=== PATIENT | female | born 2000 | race Caucasian/White ===

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

== ENCOUNTER 2018-02-23 21:31 | Emergency (ER) | payer BC, OTHER ==
[2018-02-23 23:47] VITALS: BP 127/70
== END 2018-02-24 00:25 | disposition left against medical advice (07) ==
LOC: ED 21:31
DX: S01.81XA Laceration without foreign body of other part of head, initial encounter (principal); X58.XXXA Exposure to other specified factors, initial encounter; Z53.21 Procedure and treatment not carried out due to patient leaving prior to being seen by health care provider

== ENCOUNTER 2019-10-11 11:39 | Inpatient (IN) | payer BC, OTHER ==
[2019-10-11] MEDS ORDERED: Lactated Ringers 1000 ML Bag* 1,000 ML IV ONE (12:40)
[2019-10-11] MEDS ORDERED: Dinoprostone* 10 MG VAG.SUPP VAGINAL ONE (12:40)
[2019-10-11] MEDS ORDERED: Buffered Lidocaine 1% SYRIN* 1 ML/SYRINGE INTRADERM ONE (12:40)
--- NOTE | 2019-10-11 12:52 | HP ---
General Information - Reason for Visit Cervical ripening and IOL for gestational hypertension - General Information Maternal Age: 19 Grav: 1 Para: 0 SAB: 0 IEA: 0 Estimated Due Date: 10/30/19 Determined By: LMP Gestational Age in Weeks/Days: 37 2/7 Maternal Blood Type and Rh: B Positive - Results this Serology/RPR Result: Non-Reactive Rubella Result: Immune HBsAg Result: Negative HIV Result: Negative Past Medical History Pertinent Past Medical History: See Records - mild asthma, hypercholesterolemia as a teen Pertinent Past Surgical History: None Pertinent Family History: See Records - HTN - Antepartal Records Antepartal Records: Reviewed, Complicated by: - gestational HTN Review of Systems Constitutional: Comfortable CV Complaint: No Respiratory: Shortness of Breath: No Gastrointestinal: No Nausea/Vomiting, Normal Bowel Movement Genitourinary: No Dysuria, No Bleeding, No Leaking Fluid Musculoskeletal: No Complaint, No Epigastric Pain Neurological: No Headache, No Visual Changes Movement: Normal Exam Allergies/Adverse Reactions: Allergies No Known Allergies Allergy (Verified 03/16/17 12:45) T-98.6, P-98, R-20, BP-149/98, O2-100% - Measurements Height: 5 ft 1 in Weight: 78.925 kg Weight in lbs: 174.192065 Body Mass Index (BMI): 32.8 Pre- Weight: 70.76 kg Weight Gained This : 18 lbs and 0 ozs - Exam Breast: Breast Exam Deferred CVA: No CVA Tenderness Extremities: No Edema Heart: Normal Rhythm/Heart Sounds HEENT: No Significant Findings Lungs: Clear Bilaterally Rectal: Rectal Exam Deferred Reflexes: DTR 2+ Thyroid: No Thyromegaly - Abdominal Exam Abdomen Exam: Non-Tender, Fundal Height Consistent with Dates - Ultrasound/Biophysical Profile Ultrasound Status: Not Done Targeted Exam Findings See L&D Outpatient Visit Provider Note for Findings: N/A Estimated Weight: 6# Cervical Exam: 1cm Effacement: 50% Station: -1 Presenting Part: Vertex Membrane Status: Intact Bleeding/Discharge: None EFM Findings - External Monitor Findings Baseline Heart Rate: 125 External Monitor Findings: Accelerations Present, No Pattern of Variable or Late Decelerations, Variability Moderate, Baseline Stable Contractions: Irregular, Mild, < 45 Seconds Assessment/Plan - Assessment 19 year old at 37 2/7 weeks gestation, here for cervical ripening and IOL for gestational HTN. GBS culture pending. - Obstetrical Risk Factors Obstetrical Risk Factors: GBS Unknown, Gestational Hypertension - Plan Plan: Cervical Ripening, Admit - Anticipate Vaginal Delivery Plan Comment: Recommend cervical ripening. Discussed options including Cervidil, misoprostol, cervical ripening balloon. Pt strongly prefers to avoid cervical ripening balloon. Will try Cervidil as she finds vaginal exams very uncomfortable. Will check labs to include CBC, CMP, uric acid, type and screen and urinalysis for protein. GBS culture pending, per micro should be resulted tomorrow. If active labor ensues prior to result will initiate prophylaxis. FM per protocol for Cervidil. - Date/Time of Admission Date of Admission: 10/11/19 Time of Admission: 12:42
[2019-10-11] MEDS ORDERED: Lactated Ringers 1000 ML Bag* 1,000 ML IV SCH (13:00)
[2019-10-11 13:11] LABS: Urine Appearance Cloudy; Urine Bilirubin Negative (Negative); Urine Blood Negative (Negative); Urine Color Yellow; Urine Glucose Negative (Negative); Urine Ketones Negative (Negative); Urine Nitrite Negative (Negative); Urine Protein Negative (Negative); Urine Specific Gravity 1.006 (1.010-1.030); Urine Urobilinogen Negative (Negative)
[2019-10-11 13:14] LABS: Urine Bacteria 3+ (Absent); Urine Red Blood Cell 1+(3-5/hpf) (Absent); Urine Squamous Epithelial Cell Present (Absent); Urine White Blood Cell 1+(6-10/hpf) (Absent)
[2019-10-11 13:21] LABS: Urine Benzodiazepine Screen None Detected (None Detect); Urine Opiates Screen None Detected (None Detect)
[2019-10-11 13:51] LABS: ABS Lymphocytes 1.7 10^3/ul (1.0-4.8); ABS Monocytes 0.8 10^3/ul (0-0.8); ABS Neutrophils 10.6 10^3/ul (1.5-7.7); Eosinophil % 0.1 %; Hematocrit 34 % (35-47); Hemoglobin 11.5 g/dL (12.0-16.0); Lymphocyte % 13.3 %; Mean Corpuscular HGB Conc 33 g/dL (31-36); Mean Corpuscular Hemoglobin 30 pg (27-31); Mean Corpuscular Volume 89 fL (80-97); Mean Platelet Volume 9.4 fL (7.4-10.4); Platelet Count 196 10^3/uL (150-450); Red Blood Count 3.86 10^6 /uL (3.70-4.87); Red Cell Distribution Width 14 % (10-15); White Blood Count 13.2 10^3/uL (3.5-10.8)
[2019-10-11 14:47] LABS: Albumin 3.4 g/dL (3.2-5.2); Calcium 8.8 mg/dL (8.6-10.3); Potassium 3.8 mmol/L (3.5-5.0); Total Bilirubin 0.5 mg/dL (0.2-1.0)
[2019-10-11 14:53] LABS: Albumin/Globulin Ratio 1.1 (1-3); BUN/Creatinine Ratio 18.5 (8-20); EGFR African American 172.4 (>60); EGFR Non-African American 142.5 (>60); Globulin 3.2 g/dL (2-4); Total Protein 6.6 g/dL (6.4-8.9); Uric Acid 3.7 mg/dL (2.3-6.6)
--- NOTE | 2019-10-11 15:54 | PN ---
Progress Note - Progress Note Date of Service: 10/11/19 SOAP: Subjective: Pt reports she feels mild ctx, although a bit stronger than before, about every 15 minutes. Comfortable. Objective: FHR: Baseline 120/ moderate variability/ + accels/ no decels UCs: occasional, mild BP: 146/99 Labs unremarkable, urine dip negative for protein Assessment: 19 year old at 37 2/7 weeks gestation with gestational hypertension, undergoing cervical ripening in preparation for IOL. Plan: Cervidil in place. Will remove after 12 hours or with inset active labor.
--- NOTE | 2019-10-11 20:28 | PN ---
Progress Note - Progress Note Date of Service: 10/11/19 Note: Pt comfortable, reports some mild cramping. FHR 120 per intermittent auscultation, last NST reactive. Last BP 148/89, P-70, O2-99%, R-18, T-98.8. Impression: pt stable, gestational HTN. Will continue cervidil, likely remove in the morning or if onset active labor.
--- NOTE | 2019-10-12 02:35 | PN ---
Progress Note - Progress Note Date of Service: 10/12/19 SOAP: Subjective: Pt feeling ctx in her back, stronger but coping. Declines pain medications at this time. Objective: FHR: Baseline 115/ moderate variability/ + accels/ no decels UCs:1-3 minutes BP: 141/92 Assessment: Following 12.5 hours with cervidil in place pt carmen frequently. No evidence of acidemia. BP consistent with previous. Plan: Cervidil removed. Will monitor for progression to active labor. If no onset active labor will check cervix and consider Pitocin augmentation vvs further ripening in the morning. Pt declines sleep aid or pain medication at this time.
--- NOTE | 2019-10-12 08:39 | PN ---
Progress Note - Progress Note Date of Service: 10/12/19 Note: S: Patient reports mild/moderate contractions, spaced further apart. Slept a little overnight. Mild nausea this am, resolved after eating. O: VE 2/70/-1 FHT 125 +accels, no decels, mod walt UCs q 3-6 min BP 147/96, afebrile A: IUP @ 37+3 weeks gestation for induction d/t GHTN No evidence acidemia Membranes intact P: PARQ discussion use of low-dose pitocin for continued induction, patient in agreement. Will likely want epidural when more uncomfortable.
[2019-10-12] MEDS ORDERED: Oxytocin in LR* 20 UNITS/1,000 ML BAG IVPB SCH (09:00)
[2019-10-12] MEDS ORDERED: Oxytocin in LR* 0 UNITS/0 ML BAG IVPB ONE (09:27)
--- NOTE | 2019-10-12 13:57 | PN ---
Progress Note - Progress Note Date of Service: 10/12/19 Note: S: Patient still fairly comfortable though feels contractions are moderately strong. O: VE deferred Pit @ 16 UCs q 2-4 min FHT 130, +accels, no decels, mod walt A: IUP @ 37+3 weeks gestation for IOL for GHTN Doubt acidemia Membranes intact P: Continue pitocin titration. Discussed possible use of Cook's balloon; patient declines at this time. Will reassess with maximum pitocin or around 1800 for continued pitocin vs pit break vs considering misoprostal for continued ripening.
--- NOTE | 2019-10-12 17:25 | PN ---
Progress Note - Progress Note Date of Service: 10/12/19 Note: S: Patient reports ctx manageable though they were "more intense for about a half hour". Rates as moderately strong. O: VE 2-3cm/70/vtx -1 FHT 130 Cat 1 UCs q 2-3 Pit @ 22 BP 160/103, repeat 154/90 A: IUP @ 37+3 weeks gestation for induction for GHTN Intact membrane Doubt acidemia P: Patient would like to continue pitocin titration. Would consider break if no increase in contraction intensity.
[2019-10-12] MEDS ORDERED: OBEPIDURAL* 250 ML EPIDURAL ONE (19:57)
--- NOTE | 2019-10-12 20:19 | PN ---
Progress Note - Progress Note Date of Service: 10/12/19 Note: S: Patient reports pain from ctx now in back and much stronger. Desires pain management. O: VE deferred FHT 130, +accels, no decels, mod walt Pit turned down to 11 UCs q 2-3 T 99.6 A: IUP @ 37+3 weeks for IOL for GHTN Membranes intact No evidence acidemia P: PARQ discussion labor epidural, patient desires. Anesthesia paged to unit. Will recheck cervix and consider amniotomy, pitocin titration for augmentation.
[2019-10-12] MEDS ORDERED: Phenylephrine 40 MCG/ML SYRINGE IV PUSH PRN ×2 (20:56)
[2019-10-12] MEDS ORDERED: Sodium Citrate/Citric Acid* 15 ML UDC PO PRN (20:56)
[2019-10-12] MEDS ORDERED: Lactated Ringers 1000 ML Bag* 500 ML IV PRN (20:56)
[2019-10-12] MEDS ORDERED: Lactated Ringers 1000 ML Bag* 1,000 ML IV ONE (20:56)
[2019-10-12] MEDS ORDERED: Famotidine TAB* 20 MG PO PRN (20:56)
[2019-10-12] MEDS ORDERED: Lactated Ringers 1000 ML Bag* 1,000 ML IV SCH ×2 (21:00)
[2019-10-12] MEDS ORDERED: OBEPIDURAL* 250 ML EPIDURAL SCH (21:00)
--- NOTE | 2019-10-12 21:51 | PN ---
Progress Note - Progress Note Date of Service: 10/12/19 Note: Patient comfortable with epidural. VE /-1, Pit @ 12. PARQ discussion amniotomy for augmentation. Patient declining for now, would like to try to sleep and will reconsider later. Continue pitocin titration. Anticipate SVB.
--- NOTE | 2019-10-13 02:36 | PN ---
Progress Note - Progress Note Date of Service: 10/13/19 Note: S: Patient has been comfortable, slept some. Feeling a little pressure in abdomen with contractions. O: VE 4/80/0 FHT 125, +accels, rare variables, resolved with position changes. Mod variability UCs q 2-3 min Pit @ 18 mIU/min VSS A: IUP @ 37+4 weeks gestation for induction for GHTN Doubt acidemia P: PARQ discussion amniotomy for augmentation, patient in agreement. Done to scant clear fluid. Will continue position changes and pitocin titration. Anticipate progression to SVB
[2019-10-13] MEDS ORDERED: Glycerin ADULT SUPP PR PRN (06:10)
[2019-10-13] MEDS ORDERED: Dibucaine 1% 28.35 GM TUBE PR PRN (06:10)
[2019-10-13] MEDS ORDERED: Witch Hazel PAD* JAR TOPICAL PRN (06:10)
--- NOTE | 2019-10-13 06:30 | PROCNOTE ---
[facility] OB: Delivery Note - Delivery A Date of : 10/13/19 Time of : 05:43 [place] Sex: Male - Paul Weight at : 5 lb 14 oz Score 1 Minute: 8 Score 5 Minutes: 9 Gestational Age in Weeks and Days at Delivery: 37 Weeks and 4 Days Delivery Method: Spontaneous Vaginal Labor: Induced Did Patient attempt ?: N/A, No Previous Amniotic Fluid: Clear Estimated Blood Loss: 200 Anesthesia/Analgesia: CEI for Labor Delivered By: Rakesh Castro - Nursery Level of Nursery: Regular/Bedside - Perineum Perineal Injury: Abrasion Only - Not Repaired Perineal Injury Comment: bilateral labial and perineal abrasions Perineal Repair: None - Events Delivery Events of Note: Pitocin During Labor - Additional Delivery Notes Additional Delivery Notes: Patient admitted for induction of labor for gestational hypertension. Cervidil and pitocin lead to active labor, length of active labor 5'19", pushed 42 min. Baby born OA with posterior nuchal arm, restitution to BERNABE and smooth delivery of shoulders with maternal efforts. Baby to maternal abdomen with spontaneous cry, HR over 110. Cord doubly clamped and cut by FOB once pulsations ceased. Placenta delivered with gentle cord traction @ 0543. Fundus firm with pitocin infusing. Baby at breast to initiate .
[2019-10-13] MEDS ORDERED: Lactated Ringers 1000 ML Bag* 1,000 ML IV SCH (07:00)
[2019-10-13] MEDS ORDERED: Oxytocin in LR* 20 UNITS/1,000 ML BAG IVPB SCH (07:00)
[2019-10-13] MEDS: Ibuprofen TAB* 600 MG PO PRN ×3 (07:06→19:36)
[2019-10-13] MEDS: Docusate CAP* 100 MG PO SCH ×3 (08:29→19:36)
[2019-10-13] MEDS: Acetaminophen TAB* 325 MG PO PRN ×4 (09:58→23:31)
[2019-10-14] MEDS: Ibuprofen TAB* 600 MG PO PRN ×3 (02:35→21:20)
[2019-10-14 06:38] LABS: ABS Eosinophils 0.1 10^3/ul (0-0.6); ABS Lymphocytes 1.8 10^3/ul (1.0-4.8); ABS Monocytes 0.7 10^3/ul (0-0.8); ABS Neutrophils 7.5 10^3/ul (1.5-7.7); Eosinophil % 0.6 %; Hematocrit 29 % (35-47); Hemoglobin 10.2 g/dL (12.0-16.0); Lymphocyte % 18.2 %; Mean Corpuscular HGB Conc 35 g/dL (31-36); Mean Corpuscular Hemoglobin 31 pg (27-31); Mean Corpuscular Volume 88 fL (80-97); Mean Platelet Volume 9.3 fL (7.4-10.4); Platelet Count 137 10^3/uL (150-450); Red Blood Count 3.32 10^6 /uL (3.70-4.87); Red Cell Distribution Width 14 % (10-15); White Blood Count 10.1 10^3/uL (3.5-10.8)
[2019-10-14] MEDS: Docusate CAP* 100 MG PO SCH ×3 (08:49→21:21)
[2019-10-14] MEDS ORDERED: Ferrous Gluconate TAB* 324 MG TAB PO SCH (09:00)
[2019-10-14] MEDS: Acetaminophen TAB* 325 MG PO PRN ×2 (11:22→18:06)
[2019-10-14] MEDS ORDERED: NIFEdipine ER TAB* 30 MG PO SCH (12:00)
[2019-10-14] MEDS: Labetalol TAB* 200 MG PO SCH ×2 (12:10→21:21)
--- NOTE | 2019-10-14 12:51 | PN ---
Progress Note - Progress Note Date of Service: 10/14/19 Note: Consulted by trucking contractor team secondary to persistently elevated BP's. Pt is 19 y/o PPD #1 s/p , IOL at 37w4d secondary to GHTN. BP's have remained elevated in the post periods with the majority of her systolic values > than 150, but less than 160 and several diastolic values >100 , but less than 110. She has not exhibited any severe range BP's. She is currently asymptomatic. She denies ISABEL, changes in vision, RUQ pain. She has trace edema. She is normoreflexive and exhibits no clonus. Her UOP has been WNL. Her PreEclampsia laboratory evaluation was unremarkable without any significant abnormality. Vital Signs - 24 hr 10/13/19 10/13/19 10/14/19 16:11 23:47 08:49 Temperature 97.8 F 97.8 F 97.8 F Pulse Rate 75 70 72 Respiratory 16 20 16 Rate Blood Pressure 143/85 139/72 154/100 (mmHg) O2 Sat by Pulse 100 99 Oximetry 10/14/19 10/14/19 10/14/19 08:57 09:51 12:15 Temperature Pulse Rate 71 Respiratory 18 Rate Blood Pressure 144/101 157/90 157/80 (mmHg) O2 Sat by Pulse Oximetry A/P: 19 y/o at PPD#1 s/p , IOL in at 37w4d secondary to GHTN with persistently elevated BP's which warrant therapy at this point. There are no signs or symtpoms of PreE with severe features at this time, but given persistent BP's which are greater that 150/100, I do feel that she warrants anti-hypertensive therapy. She has a remote Hx of mild asthma and states that she rarely requires use of an inhaler. I feel it is reasonable to initiate a trial of Labetalol 200mg BID with close monitoring. Will close f/u in the outpatient setting with post BP check in the office before the end of the coming week after discharge. Discussed with patient that discharge today would be innapropriate as we need to more closely monitor her BP's and her response to anti-hypertensive therapy. Discussed with JOSELUIS Abrams who will continue to manage the remainder of the patient's otherwise routine post care. DO DEEPA Archuleta
[2019-10-15] MEDS: Ibuprofen TAB* 600 MG PO PRN (03:27)
[2019-10-15 07:38] VITALS: BP 144/80
[2019-10-15] MEDS: Docusate CAP* 100 MG PO SCH (08:26)
[2019-10-15] MEDS: Acetaminophen TAB* 325 MG PO PRN (08:26)
[2019-10-15] MEDS: Labetalol TAB* 200 MG PO SCH (08:27)
== END 2019-10-15 11:50 | disposition home or self-care (01) | DRG 560 ==
LOC: MCHOBOUT 11:39 → MCHOB 12:42
PROVIDERS: ADMIT Midwife; ATTEND Midwife
PROC: 10E0XZZ Delivery of Products of Conception, External Approach (ICD-10-PCS; principal; 2019-10-13)
PROC: 3E033VJ Introduction of Other Hormone into Peripheral Vein, Percutaneous Approach (ICD-10-PCS; 2019-10-13)
PROC: 10907ZC Drainage of Amniotic Fluid, Therapeutic from Products of Conception, Via Natural or Artificial Opening (ICD-10-PCS; 2019-10-13)
DX: O13.4 Gestational [pregnancy-induced] hypertension without significant proteinuria, complicating childbirth (principal); Z37.0 Single live birth; O99.52 Diseases of the respiratory system complicating childbirth; O70.0 First degree perineal laceration during delivery; O90.81 Anemia of the puerperium; D64.9 Anemia, unspecified; Z3A.37 37 weeks gestation of pregnancy
CPT/HCPCS: 36415; 59200; 80053; 80307; 81003; 81015; 84550; 85025; 86850; 86900; 86901; 87086; A9270-GY; G0480